=== PATIENT | female | born 1995 | race Hispanic/Latino ===

== ENCOUNTER 2017-07-23 11:00 | Day surgery (SDC) | payer MEDICAID, OTHER ==
[2017-07-23 11:45] VITALS: BP 125/80; TEMP 98.6; BMI 31.1
--- NOTE | 2017-07-23 12:32 | PDOC.LDHP ---
Labor and Delivery H&P Chief complaint: contractions HPI: Patient is a 22yo at 39.2 by 7w u/s who presents with ctx starting at 9pm last night. She also reports mucousy blood-tinged discharge. In the office last week her cervical exam was difficult due to cervix being very posterior. She is considered high risk due to presentation for initial care at 32w, otherwise, has been uneventful. Denies LOF, VB, and decreased FM. Current gestational age (weeks): 39 (2 days) Dating criteria: first trimester ultrasound Grav: 3 Para: 2 OB History Details: 2 prior with no complications GDM with last . Current complications: none (late to care), other Abnormal US findings: No Past Medical History: None Current medications: pre- vitamins Previous surgical history: cholecystectomy Social history: drug use (cannabis) - Physical Exam Vital signs reviewed and normal: yes General: NAD, breathing through contractions Heart: RRR Lungs: CTAB Abdomen: NTTP Extremeties: trace edema FHT: category 1 [place] contractions every: q7-10min - Vaginal Exam cm dilated: 4 Effacement: 75% Station: -1 - OB Labs Blood type: B RH: positive Antibody Screen: negative HIV: negative RPR: negative HEPSAg: negative 1 hour GCT: positive 3 hour GTT: negative GBS: negative Urine drug screen: positive (cannabis) Rubella: immune - Assessment 22yo at 39.2 by 7w u/s presents for evaluation of contractions. - Observe patient for signs of labor. Ctx q7-10min right now, cervical check 4/ 75/-1. - Plan to recheck cervix in 2 hrs and if change admit for labor, if no change then likely d/c home. <Linda Ratliff - Last Filed: 07/23/17 12:28> <Miah Clifton - Last Filed: 08/22/17 12:36> Allergies/Adverse Reactions: Allergies Allergy/AdvReac Type Severity Reaction Status Date / Time No Known Allergies Allergy Verified 12/05/13 16:17 Attending Addendum - Attending Addendum Date/Time: 08/22/17 9906 I personally evaluated the patient and discussed the management with Dr. Ratliff on 07/23/17. I agree with the History, Examination, Assessment and Plan documented above with any addition or exceptions noted below. 22yo at 39.2 by 7w u/s, late to PN care for eval of contractions in latent labor. Monitor for progression. <Miah Clifton - Last Filed: 08/22/17 12:36>
== END 2017-07-23 16:58 | disposition home or self-care (01) ==
LOC: L&D/OP 11:00
PROVIDERS: ATTEND Family Medicine
DX: O47.1 False labor at or after 37 completed weeks of gestation (principal); Z3A.39 39 weeks gestation of pregnancy; Z79.899 Other long term (current) drug therapy
CPT/HCPCS: 99282

== ENCOUNTER 2017-07-24 01:30 | Inpatient (IN) | payer MEDICAID, OTHER ==
[2017-07-24 01:52] VITALS: BMI 31.1
--- NOTE | 2017-07-24 02:15 | PDOC.LDHP ---
Labor and Delivery H&P Chief complaint: contractions HPI: 22 yo at 39.3 here with complaint of contractions ever 2-3 minutes. She denies associated loss of fluid or vaginal bleeding. movement is good. She complains of mucus discharge with bloody streaking. She was seen in L&D on at 1200. At that time her CVE was 3/25/-3. She was asked to get up and walk around for 2 hours, however did not return until now. Her has been complicated by late to care and cannabis use. Current gestational age (weeks): 39 (39.3) Due date: 07/28/17 Dating criteria: first trimester ultrasound Grav: 3 Para: 2 Current complications: gestational hypertension, other (Late to care, drug use) Abnormal US findings: No Current medications: pre-carrie vitamins Social history: drug use - Physical Exam Vital signs reviewed and normal: yes General: NAD, breathing through contractions Heart: RRR Lungs: CTAB Abdomen: gravid Extremeties: no edema - Vaginal Exam cm dilated: 6 Effacement: 90% Station: -1 - OB Labs Blood type: B RH: positive Antibody Screen: negative HIV: negative RPR: negative HEPSAg: negative 1 hour GCT: positive 3 hour GTT: unknown GBS: negative Urine drug screen: positive Rubella: immune - Assessment L&D Assessment: term patient in labor - Plan Plan: admit to L&D, labor augmentation if indicated <Tam Hendrix - Last Filed: 07/24/17 02:09> <Yonatan Padgett - Last Filed: 07/24/17 03:32> Allergies/Adverse Reactions: Allergies Allergy/AdvReac Type Severity Reaction Status Date / Time No Known Allergies Allergy Verified 12/05/13 16:17 Attending Addendum - Attending Addendum Date/Time: 07/24/17 0332 I personally evaluated the patient and discussed the management with Dr. Hendrix. I agree with the History, Examination, Assessment and Plan documented above with any addition or exceptions noted below. <Yonatan Padgett - Last Filed: 07/24/17 03:32>
[2017-07-24] MEDS ORDERED: Diphenoxylate HCl/Atropine Tablet PO PRN (02:24)
[2017-07-24] MEDS ORDERED: HYDROcodone/Acetaminophen 5/325 mg Tablet PO PRN (02:24)
[2017-07-24] MEDS ORDERED: Misoprostol 200 MCG TAB PR PRN (02:24)
[2017-07-24] MEDS ORDERED: Carboprost 250 MCG/ML AMP IM PRN (02:24)
[2017-07-24] MEDS ORDERED: Ibuprofen 800 MG TAB PO PRN (02:24)
[2017-07-24] MEDS ORDERED: Lidocaine 1% (PF) 30 ML VIAL SC PRN (02:24)
[2017-07-24] MEDS ORDERED: Methylergonovine 0.2 MG/ML VIAL IM PRN (02:24)
[2017-07-24] MEDS ORDERED: LR / Pitocin 40 units/1000 ml 1,000 ML IV PRN (02:24)
[2017-07-24] MEDS ORDERED: Ondansetron HCl/PF 4 MG/2 ML Vial IVP PRN ×2 (02:27→06:08)
[2017-07-24] MEDS ORDERED: Promethazine HCl 25 MG/ML VIAL IM PRN (02:27)
[2017-07-24 02:54] LABS: Hemoglobin 11.3 g/dL (12.0-16.0); Mean Corpuscular HGB CONC 33.8 g/dL (32.0-36.0); Mean Corpuscular Hemoglobin 26.7 pg (27.0-31.0); Mean Corpuscular Volume 78.8 fl (81.0-99.0); Mean Platelet Volume 8.7 fL (7.4-10.4); Platelet Count 235 thou/uL (130-400); RBC Distribution Width 13.1 % (11.5-14.5); Red Blood Cell (RBC) Count 4.22 mill/uL (4.20-5.40); White Blood Cell (WBC) Count 18.6 thou/uL (4.8-10.8)
[2017-07-24] MEDS ORDERED: Lactated Ringer's 1,000 ML IV SCH (03:00)
[2017-07-24 03:21] LABS: HBSAg Index 0.21 S/CO (0-0.99); Hep B Surf Ag Non-Reactive S/CO (NonReactive)
--- NOTE | 2017-07-24 04:26 | PDOC.OPDEL ---
OB Operative/Delivery Note Delivery Dr/Surgeon: Isela Hendrix Williamson Pre-Delivery Diagnosis: active labor Procedure/Post Delivery Dx: spontaneous vaginal delivery Weeks gestation: 39 (39.3) Anesthesia: none - Findings A Sex: male - 1 min: 8 - 5 min: 9 - Additional Findings/Plan Placenta delivered: spontaneous Repaired Obstetrical Laceration: none Estimated blood loss: 150 Post delivery plan: routine recovery <Tam Hendrix - Last Filed: 07/24/17 04:24> Attending Addendum - Attending Addendum Date/Time: 07/24/17 1607 I was present for the delivery. Multpara s/p . delivered OA, atraumatically, with no nuchal cord. placed on mother skin to skin and optimal cord clamping performed. Blood sampled. Placenta delivered via CCT. Uterus firmed with fundal massage and IV pitocin. No lacerations noted. Agree with EBL. <Yonatan Padgett - Last Filed: 07/24/17 16:09>
[2017-07-24] MEDS ORDERED: Bisacodyl 10 MG SUPP PR PRN (06:08)
[2017-07-24] MEDS ORDERED: Benzocaine/Menthol 20-0.5% 60 ML CAN TOP PRN (06:08)
[2017-07-24] MEDS ORDERED: Milk Of Magnesia 30 ML UDCUP PO PRN (06:08)
[2017-07-24] MEDS ORDERED: Adacel (T-DAP) 0.5 ML VIAL IM ONE (06:08)
[2017-07-24] MEDS ORDERED: Preparation H Ointment 28 GM TUBE PR PRN (06:08)
[2017-07-24] MEDS ORDERED: LR / Pitocin 40 units/1000 ml 1,000 ML IV SCH (06:08)
[2017-07-24] MEDS ORDERED: Lanolin Ointment 7 GM TUBE TOP PRN (06:08)
[2017-07-24] MEDS ORDERED: diphenhydrAMINE 25 MG CAP PO PRN (06:08)
[2017-07-24 06:24] LABS: Syphilis Antibody Nonreactive (Nonreactive); Syphilis Antibody Index 0.02 S/CO (<1.00 Non-Reactive)
[2017-07-24] MEDS ORDERED: HYDROcodone/Acetaminophen 5/325 mg Tablet PO ONE (06:41)
[2017-07-24] MEDS: Ibuprofen 800 MG TAB PO SCH ×3 (06:41→21:39)
[2017-07-24] MEDS: Docusate Calcium (SURFAK) 240 MG CAP PO SCH ×2 (08:52→21:40)
[2017-07-24 10:14] LABS: Amphetamine Not Detected (NotDetected); Barbiturates Screen Not Detected (NotDetected); Benzodiazepine Screen Not Detected (NotDetected); Cocaine Metabolite Screen Not Detected (NotDetected); Medtox Control Line Valid? VALID (VALID); Medtox Reader # READER 1; Methadone Not Detected (NotDetected); Methamphetamine Not Detected (NotDetected); Opiate Screen Not Detected (NotDetected); Oxycodone Screen Not Detected (NotDetected); Phencyclidine (PCP) Not Detected (NotDetected); THC/Cannabinoid Screen Detected (NotDetected); Tricyclic Screen Not Detected (NotDetected)
[2017-07-25] MEDS: Ibuprofen 800 MG TAB PO SCH ×2 (05:43→13:53)
--- NOTE | 2017-07-25 06:42 | PDOC.PP ---
Post Progress Note Post Day #: 1 Subjective: Patient doing well this AM. No significant overnight events. Tolerating PO. Ambulating without assistance. PO intake tolerated: yes Flatus: yes Ambulation: yes Vital Signs (12 hours) Temp Pulse Resp BP 07/25/17 00:00 98.7 F 70 12 118/72 07/24/17 20:00 99.2 F 68 12 121/63 Weight Weight 84.822 kg - Physical Examination General: NAD Cardiovascular: no m/r/g, RRR Respiratory: clear to auscultation bilaterally, non-labored breathing Abdominal: + bowel sounds, lochia (wnl), no distention, appropriately TTP Fundus firm & at: at umbilicus Skin: no rash Neurological: no gross focal deficits Psychiatric: A&Ox3, normal affect Result Diagrams: 07/24/17 02:21 Additional Labs: Post Labs Hep Bs Antigen Non-Reactive S/CO (NonReactive) 07/24/17 02:21 (1) Term delivered Code(s): O80 - ENCOUNTER FOR FULL-TERM UNCOMPLICATED DELIVERY Status: Acute Comment: 22 year old at 39.2 wks delivered CASSIE Shah via at 0317 on 07/24. - CPS involved in case due to maternal drug use; infant to go home with paternal grandmother upon discharge - Drug screen positive for marijuana - Previous pregnancies with GDM; no history of glucose intolerance in this - GBS negative - Routine PP care (2) Late care Code(s): O09.30 - SUPRVSN OF PREG W INSUFFICIENT ANTENAT CARE, UNSP TRIMESTER Status: Acute Comment: - No complications (3) Drug use affecting Code(s): O99.320 - DRUG USE COMPLICATING , UNSPECIFIED TRIMESTER Status: Acute Comment: - CPS involved in case; infant to go home with maternal grandmother upon discharge - Assessment/Plan Plan for D/C home today. to go home with paternal grandmother upon discharge. <Yamilet Escobar - Last Filed: 07/25/17 07:23> Weight Weight 84.822 kg Result Diagrams: 07/24/17 02:21 Additional Labs: Post Labs Hep Bs Antigen Non-Reactive S/CO (NonReactive) 07/24/17 02:21 <Miah Clifton - Last Filed: 08/22/17 14:39> Attending Addendum - Attending Addendum Date/Time: 08/22/17 2324 I personally evaluated the patient and discussed the management with Dr. Escobar on 07/25/17 I agree with the History, Examination, Assessment and Plan documented above with any addition or exceptions noted below. Pain controlled. Lochia normal. Afeb. Fundus Firm. Stable for d/c home. <Miah Clifton - Last Filed: 08/22/17 14:39>
[2017-07-25] MEDS: Docusate Calcium (SURFAK) 240 MG CAP PO SCH (09:20)
[2017-07-25 10:34] VITALS: BP 103/51; TEMP 98
== END 2017-07-25 16:25 | disposition home or self-care (01) | DRG 775 ==
LOC: L&D/OP 01:30 → L&D 02:33 → 3SW 06:01
PROVIDERS: ADMIT Emergency Medicine; ATTEND Emergency Medicine
PROC: 10E0XZZ Delivery of Products of Conception, External Approach (ICD-10-PCS; principal; 2017-07-24)
DX: O13.3 Gestational [pregnancy-induced] hypertension without significant proteinuria, third trimester (principal); O99.323 Drug use complicating pregnancy, third trimester; Z3A.39 39 weeks gestation of pregnancy; Z37.0 Single live birth; F12.10 Cannabis abuse, uncomplicated
CPT/HCPCS: 80306; 85027; 86780; 87340; 99282; 99285; J2001